=== PATIENT | male | born 1980 | race Hispanic/Latino ===

== ENCOUNTER 2018-05-06 12:13 | Observation (INO) | payer SELFPAY ==
[~2018-05-06] VITALS: Ht 175.3 cm; Wt 130.6 kg
--- OUTSIDE RECORDS SUMMARY | 2018-05-06 12:16 | XMS REPORT | Summary of Care ---
Author Author [facility] Organization [facility] Address Unknown Phone Unavailable Encounter HQ Vick(JERMIAN) [id number] Date(s): 05/09/16 - 05/10/16 [facility] [address] [place] [address]- Discharge Diagnosis: Lumbar strain Discharge Diagnosis: Removal of clare Discharge Disposition: Home or Self Care Attending Physician: Brenden Reid MD Vital Signs 1 2 3 Most recent to oldest [Reference Range]: 170.18 cm (05/09/16 7:59 PM) Height 98.2 DegF (05/10/16 2:08 AM) 97.7 DegF (05/09/16 7:59 PM) Temperature Oral [96.4-99.1 DegF] 152/100 mmHg *HI* (05/10/16 1:26 AM) 146/101 mmHg *HI* (05/10/16 12:46 AM) 139/92 mmHg (05/09/16 7:59 PM) Blood Pressure [90-140/60-90 mmHg] 18 BRMIN (05/10/16 1:26 AM) 18 BRMIN (05/10/16 12:46 AM) 18 BRMIN (05/09/16 7:59 PM) Respiratory Rate [14-20 BRMIN] 91 bpm (05/10/16 1:26 AM) 98 bpm (05/10/16 12:46 AM) 111 bpm *HI* (05/09/16 7:59 PM) Peripheral Pulse Rate [60-100 bpm] 116.364 kg (05/09/16 7:59 PM) Weight 40.18 m2 (05/09/16 7:59 PM) Body Mass Index Problem List No data available for this section Allergies, Adverse Reactions, Alerts Substance Reaction Severity Status NKDA Active Medications Flexeril 10 mg, 1 tab, Route: PO, Drug form: TAB, ONCE, Dosing Weight 116.364, kg, Priori ty: STAT, Start date: 05/10/16 0:42:00 [employer]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, Stop date: 05/10/16 0:42:00 [employer]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 Notes: (Same As: Flexeril) Start Date: 05/10/16 Stop Date: 05/10/16 Status: Completed Flexeril 10 mg oral tablet 10 mg, PO, TID, PRN Muscle Spasm, May cause drowsiness, DO NOT TAKE IF YOU ARE D RIVING WITHIN THE FOLLOWING 8 HOURS., X 10 day, # 30 tab, 0 Refill(s) Start Date: 05/10/16 Stop Date: 05/20/16 Status: Ordered Motrin 800 mg, 1 tab, Route: PO, Drug form: TAB, ONCE, Dosing Weight 116.364, kg, Prior ity: STAT, Start date: 05/10/16 0:42:00 [employer]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, Stop date: 05/10/16 0:42:00 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 Start Date: 05/10/16 Stop Date: 05/10/16 Status: Completed Motrin 800 mg oral tablet 800 mg=1 tab, PO, Q8H, PRN Pain, Take with food, # 30 tab, 0 Refill(s) Start Date: 05/10/16 Stop Date: 05/09/17 Status: Ordered Results ELECTROLYTES Most recent to 1 oldest [Reference Range]: Sodium Lvl [135-145 139 mEq/L mEq/L] (05/10/16 1:11 AM) Potassium Lvl 3.9 mEq/L [3.5-5.1 mEq/L] (05/10/16 1:11 AM) Chloride Lvl [95-109 107 mEq/L mEq/L] (05/10/16 1:11 AM) CO2 [24-32 mEq/L] 24 mEq/L (05/10/16 1:11 AM) AGAP [10.0-20.0 11.9 mEq/L mEq/L] (05/10/16 1:11 AM) CHEM PANEL Most recent to 1 oldest [Reference Range]: Creatinine Lvl 0.85 mg/dL [0.50-1.40 mg/dL] (05/10/16 1:11 AM) eGFR 112 mL/min/1.73m2 1 *NA* (05/10/16 1:11 AM) BUN [7-22 mg/dL] 11 mg/dL (05/10/16 1:11 AM) Glucose Lvl [70-99 94 mg/dL mg/dL] (05/10/16 1:11 AM) Calcium Lvl 8.8 mg/dL [8.5-10.5 mg/dL] (05/10/16 1:11 AM) 1Result Comment: The eGFR is calculated using the CKD-EPI formula. In most young, healthy individuals the eGFR will be >90 mL/min/1.73m2. The eGFR declines with age. An eGFR of 60-89 may be normal in some populations, particularly the elderly, for whom the CKD-EPI formula has not been extensively validated. Use of the eGFR is not recommended in the following populations: Individuals with unstable creatinine concentrations, including patients and those with serious co-morbid conditions. Patients with extremes in muscle mass or diet. The data above are obtained from the National Kidney Disease Education Program ( NKDEP) which additionally recommends that when the eGFR is used in patients with extremes of body mass index for purposes of drug dosing, the eGFR should be mul tiplied by the estimated BMI. URINE AND STOOL Most recent to 1 oldest [Reference Range]: UA Turbidity [Clear] Clear (05/09/16 8:18 PM) UA Color [Yellow] Yellow *NA* (05/09/16 8:18 PM) UA pH [5.0-8.0] 5.5 (05/09/16 8:18 PM) UA Spec Grav >=1.030 [<=1.030] *ABN* (05/09/16 8:18 PM) UA Glucose Negative [Negative] (05/09/16 8:18 PM) UA Blood [Negative] Trace *ABN* (05/09/16 8:18 PM) UA Ketones Negative [Negative] *NA* (05/09/16 8:18 PM) UA Protein Negative [Negative] (05/09/16 8:18 PM) UA Urobilinogen 0.2 EU/dL [0.1-1.0 EU/dL] (05/09/16 8:18 PM) UA Bili [Negative] Negative *NA* (05/09/16 8:18 PM) UA Leuk Est Negative [Negative] (05/09/16 8:18 PM) UA Nitrite Negative [Negative] (05/09/16 8:18 PM) UA WBC [None Seen 0-2 /HPF /HPF] (05/09/16 8:18 PM) UA RBC [0-2 /HPF] 0-2 /HPF (05/09/16 8:18 PM) UA Bacteria [None Occasional /HPF Seen /HPF] (05/09/16 8:18 PM) UA Sq Epi [Few /LPF] Rare /LPF (05/09/16 8:18 PM) UA Mucus [None Seen Few /LPF /LPF] (05/09/16 8:18 PM) HEMATOLOGY Most recent to 1 oldest [Reference Range]: WBC [3.7-10.4 K/CMM] 7.1 K/CMM (05/09/16 11:40 PM) RBC [4.70-6.10 5.41 M/CMM M/CMM] (05/09/16 11:40 PM) Hgb [14.0-18.0 g/dL] 14.4 g/dL (05/09/16 11:40 PM) Hct [42.0-54.0 %] 43.9 % (05/09/16 11:40 PM) MCV [80.0-94.0 fL] 81.1 fL (05/09/16 11:40 PM) MCH [27.0-31.0 pg] 26.5 pg *LOW* (05/09/16 11:40 PM) MCHC [32.0-36.0 32.7 g/dL g/dL] (05/09/16 11:40 PM) RDW [11.5-14.5 %] 14.5 % (05/09/16 11:40 PM) Platelet [133-450 341 K/CMM K/CMM] (05/09/16 11:40 PM) MPV [7.4-10.4 fL] 7.6 fL (05/09/16 11:40 PM) Segs [45.0-75.0 %] 54.3 % (05/09/16 11:40 PM) Lymphocytes 33.5 % [20.0-40.0 %] (05/09/16 11:40 PM) Monocytes [2.0-12.0 9.2 % %] (05/09/16 11:40 PM) Eosinophils [0.0-4.0 2.3 % %] (05/09/16 11:40 PM) Basophils [0.0-1.0 0.7 % %] (05/09/16 11:40 PM) Segs-Bands # 3.9 K/CMM [1.5-8.1 K/CMM] (05/09/16 11:40 PM) Lymphocytes # 2.4 K/CMM [1.0-5.5 K/CMM] (05/09/16 11:40 PM) Monocytes # [0.0-0.8 0.7 K/CMM K/CMM] (05/09/16 11:40 PM) Eosinophils # 0.2 K/CMM [0.0-0.5 K/CMM] (05/09/16 11:40 PM) Basophils # [0.0-0.2 0.1 K/CMM K/CMM] (05/09/16 11:40 PM) Immunizations Given and Recorded Vaccine Date Status Refusal Reason diphtheria/pertussis, acel/tetanus adult 04/28/16 Given Procedures No data available for this section Social History Social History Type Response Smoking Status Former smoker; Ready to change: No; Concerns about tobacco use in household: No; Exposure to Tobacco Smoke None; Cigarette Smoking Last 365 Days No; Reg Smoking Cessation Counseling No Assessment and Plan No data available for this section
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
[2018-05-06] MEDS ORDERED: NITROGLYCERIN 0.4 MG SUBL SL ONE (12:30)
[2018-05-06] MEDS ORDERED: ASPIRIN 325 MG TAB PO NR (12:45)
[2018-05-06] MEDS ORDERED: ASPIRIN 81 MG CHEW TAB PO ONE (13:15)
[2018-05-06] MEDS ORDERED: SODIUM CHLORIDE FLUSH 10 ML SYR INJ PRN (13:15)
--- OUTSIDE RECORDS SUMMARY | 2018-05-06 13:32 | XMS REPORT ---
Author Author [facility] Address Unknown Phone Unavailable Care Team Providers Care Dealership General Manager Name Role Phone Unavailable Unavailable Problems This patient has no known problems. Allergies, Adverse Reactions, Alerts This patient has no known allergies or adverse reactions. Medications This patient has no known medications. Encounters Start Date/Time End Date/Time Encounter Type Admission Type Attending Clinicians Care Facility Care Department Encounter ID 2018-01-10 00:00:00 2018-01-10 00:00:00 [facility] [id number]
--- NOTE | 2018-05-06 13:44 | Diagnostic Imaging Report ---
EXAMINATION: PA and lateral views of the chest. COMPARISON: None CLINICAL HISTORY: Chest pain DISCUSSION: Lines/tubes: None. Lungs: The lungs are well inflated and clear. No pneumonia or pulmonary edema. Pleura: No pleural effusion or pneumothorax. Heart and mediastinum: The cardiomediastinal silhouette is normal. Bones and soft tissues: No acute bony abnormalities. IMPRESSION: No acute cardiopulmonary abnormalities. Signed by: Dr. Marshal Contreras M.D. on 05/06/2018 1:41 PM
[2018-05-06 15:51] VITALS: BP 132/82
[2018-05-06 15:57] LABS: CREATINE KINASE 79 IU/L (30-200)
[2018-05-06 17:00] VITALS: BP 132/82
--- NOTE | 2018-05-06 19:34 | Consultation ---
DATE OF CONSULTATION: May 06, 2018 CARDIOLOGY CONSULTATION Thank you so much for asking me to see this nice man in consultation. 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 CHIEF COMPLAINT: He presented to the freestanding emergency room earlier today with a complaint of palpitations. HISTORY OF PRESENT ILLNESS: Patient reports he has had some palpitations very brief earlier today, has not used any cocaine since Saturday the . He reports he has had 1 episode previously of somewhat palpitations, but no syncope. He does describe some occasional chest discomfort with some radiation to his neck, but does not tie it to these palpitations. PAST MEDICAL HISTORY: Relatively insignificant. He may not have seen doctors before, takes no medications, no surgeries, no hospitalizations. PERSONAL/SOCIAL HISTORY: Drug uses as above. FAMILY HISTORY: He reports both his parents have diabetes and his father appears to be a dialysis patient. REVIEW OF SYSTEMS: Negative for any other associated problems, generally healthy. PHYSICAL EXAM GENERAL: Physical exam at this time shows an obese man, who was alert and comfortable. HEAD, EYES, EARS, NOSE, THROAT: Unremarkable. NECK: Thick. THORAX: Heart sounds, S1 and S2 are equal. No murmurs. LUNGS: Clear. ABDOMEN: Protuberant. Multiple tattoos on chest and abdomen. EXTREMITIES: No cyanosis, clubbing or edema. LAB: EKG shows normal sinus rhythm. CBC is unremarkable. Drug screen positive for cocaine. Troponins are normal. BUN creatinine 9 and 1.0. Glucose 89. ASSESSMENT 1. Palpitations, etiology not clear. 2. Chest and neck discomfort could be new-onset angina. 3. Obesity. 4. Cocaine abuse. Plan will monitor telemetry and plan stress test in the morning if he is otherwise stable. Job#: [id number] CQ
[2018-05-06 20:20] VITALS: BP 127/90
[2018-05-07] VITALS: BP 116/81
[2018-05-07 05:28] LABS: CREATINE KINASE 79 IU/L (30-200)
[2018-05-07 05:51] LABS: CHOL/HDL RATIO 3.8 (3.9-4.7)
[2018-05-07 07:59] VITALS: BP 135/80
[2018-05-07 09:19] VITALS: BP 135/80
[2018-05-07 11:34] VITALS: BP 134/87
[2018-05-07 15:21] VITALS: BP 128/83
--- NOTE | 2018-05-08 12:21 | Cardiology Report ---
DATE OF STUDY: May 07, 2018 EXERCISE STRESS TEST ATTENDING PHYSICIAN: Dr. Bhavna Martinez. Patient exercised on Jr protocol for a total of 6 minutes 39 seconds, reaching greater than 85% of age-predicted maximum. Maximum METs were 7.0. There were no ST-T changes and no chest pain during exercise. He did have single PVCs. FINAL IMPRESSION 1. Negative exercise treadmill test for ischemia. 2. No chest pain. 3. Premature ventricular contractions. 4. Normal blood pressure response. 5. Normal stress test. Job#: [id number] EV cc:BHAVNA MARTINEZ MD
== END 2018-05-07 19:00 | disposition home or self-care (01) ==
LOC: FSED 12:13 → ERHOLD 13:19 → INTOOBSV 13:19 → IMCU 15:00
PROVIDERS: ADMIT Internal Medicine; ATTEND Internal Medicine
DX: R07.89 Other chest pain (principal); E66.9 Obesity, unspecified; Z68.41 Body mass index [BMI] 40.0-44.9, adult; R00.2 Palpitations; F14.10 Cocaine abuse, uncomplicated
CPT/HCPCS: 36415 ×2; 71046; 80053; 80061; 80307; 81003; 82550 ×2; 82553 ×2; 83880; 84484 ×2; 85025; 85379; 93005; 93017; 93306; 99284; G0378 ×2